=== PATIENT | female | born 1975 | race Caucasian/White ===

== ENCOUNTER 2016-04-11 10:54 | Outpatient (CLI) | payer MEDICARE, MEDICAID | END 2016-04-11 10:55 | disposition home or self-care (01) | DRG 561 | LOC: CONVCARE 10:54 | PROVIDERS: ATTEND Orthopaedic Surgery | DX: S82.402D Unspecified fracture of shaft of left fibula, subsequent encounter for closed fracture with routine healing (principal) | CPT/HCPCS: 73610 ==

== ENCOUNTER 2016-05-10 14:32 | Outpatient (CLI) | payer MEDICARE, MEDICAID | END 2016-05-10 14:33 | disposition home or self-care (01) | DRG 561 | LOC: CONVCARE 14:32 | PROVIDERS: ATTEND Orthopaedic Surgery | DX: S82.832D Other fracture of upper and lower end of left fibula, subsequent encounter for closed fracture with routine healing (principal) | CPT/HCPCS: 73610 ==

== ENCOUNTER 2017-02-20 08:21 | Day surgery (SDC) | payer MEDICARE, MEDICAID ==
[~2017-02-20 08:21] MED LIST: LIDOCAINE HCL 1% MPF SOL ONE; PROPOFOL 500 MG/50 ML EMU IV ONE
[2017-02-20] MEDS ORDERED: FENTANYL 100MCG/2ML SOL ONE (09:39)
[2017-02-20 10:53] VITALS: RESP 20; TEMP 97.3
[2017-02-20 10:56] VITALS: BP 150/85; PULSE 62; O2SAT 99
== END 2017-02-20 11:05 | disposition home or self-care (01) | DRG 812 ==
LOC: SURG 08:21
PROVIDERS: ATTEND Surgery
DX: D50.9 Iron deficiency anemia, unspecified (principal)
CPT/HCPCS: J3010; J2001; J2704

== ENCOUNTER 2017-09-24 10:37 | Emergency (ER) | payer MEDICARE, MEDICAID ==
[2017-09-24 10:45] VITALS: BP 161/94; PULSE 61; RESP 20; TEMP 96.7; O2SAT 99
== END 2017-09-24 11:16 | disposition home or self-care (01) | DRG 563 ==
LOC: ED 10:37
DX: S63.502A Unspecified sprain of left wrist, initial encounter (principal); S60.212A Contusion of left wrist, initial encounter
CPT/HCPCS: 73110; 99282

== ENCOUNTER 2018-09-25 13:34 | Day surgery (SDC) | payer MEDICARE, MEDICAID ==
[2018-09-25] MEDS ORDERED: MIDAZOLAM 2 MG/2 ML SOL ONE ×3 (13:49→14:46)
[2018-09-25] MEDS ORDERED: FENTANYL 100MCG/2ML SOL ONE (13:49)
[2018-09-25] MEDS ORDERED: POVIDONE IODINE 5% SOL ONE (14:16)
[2018-09-25] MEDS ORDERED: LIDOCAINE 2% W/ EPI MPF 20 ML SOL ONE (14:16)
[2018-09-25] MEDS ORDERED: BACITRACIN 500 U/GM OIN TOP ONE (14:16)
[2018-09-25 14:59] VITALS: TEMP 97.4
[2018-09-25 15:12] VITALS: BP 150/96; PULSE 74; RESP 18; O2SAT 98
== END 2018-09-25 15:25 | disposition home or self-care (01) | DRG 125 ==
LOC: SURG 13:34
PROVIDERS: ATTEND Ophthalmology
DX: H02.826 Cysts of left eye, unspecified eyelid (principal); H02.823 Cysts of right eye, unspecified eyelid
CPT/HCPCS: J2250; J3010; A9270-GY